=== PATIENT | male | born 1970 | race Two or more races ===

== ENCOUNTER 2016-08-21 08:16 | Emergency (ER) | payer OTHER ==
--- NOTE | ~2016-08-21 | CT4 ---
[facility] A Service of [facility] RADIOLOGY TEXT RESULTS PATIENT: DASH COWAN LOCATION: [facility] : 74 UNIT #: [id number] AGE: [address]: Dakota Khanna DO SEX: M ORDER DR: [id number] [facility] [place], [place] [address] [id number] E MR#: [id number] Acc #: [id number] NAME: DASH COWAN : 1970 SEX: M STUDY DATE/TIME: 08/21/2016 11:18 UNIT: [facility] ROOM: STUDY DESCRIPTION: CT Abd and Pelv Wo Cont Attending Physician: Dakota Khanna D.O. Ordering Physician: Dakota Khanna D.O. Primary Care Physician: No Primary Care Physician MEDICAL IMAGING REPORT This report is preliminary unless electronic signature is present EXAM Abdomen and pelvis CT without contrast. HISTORY Right-sided scrotal pain for the past 5 days. TECHNIQUE Axial images were obtained without contrast. This CT exam was performed with one or more of the following radiation dose reduction techniques: automatic exposure control, adjustment of mA and/or kV according to patient size, and iterative reconstruction. FINDINGS The liver, spleen and pancreas are normal in size. The kidneys show no evidence of stone disease or hydronephrosis. The ureters are nondilated. The appendix is normal. There is no evidence of retroperitoneal adenopathy or ascites and no distended bowel loops are seen. In the pelvis, there is no evidence of adenopathy, mass, or fluid collection. No evidence of an inguinal hernia on either side. IMPRESSION Negative abdomen and pelvis CT. Dictated by... Jaime Cooper M.D. THIS IS AN ELECTRONICALLY VERIFIED REPORT Jaime Cooper M.D. at 08/25/2016 6:27 PM RLF/tmw [facility] A Service of [facility] RADIOLOGY TEXT RESULTS PATIENT: DASH COWAN LOCATION: [facility] : 74 UNIT #: [id number] AGE: [address]: Dakota Khanna DO SEX: M ORDER DR: TD: 08/21/2016 12:13 JOB #: [id number] MEDICAL IMAGING REPORT Page 1 of 1 COPY
--- NOTE | ~2016-08-21 | US115 ---
[facility] A Service of [facility] RADIOLOGY TEXT RESULTS PATIENT: DASH COWAN LOCATION: [facility] : 74 UNIT #: [id number] AGE: [address]: Dakota Khanna DO SEX: M ORDER DR: [id number] [facility] [address] [place], [place] [address] [id number] E MR#: [id number] Acc #: [id number] NAME: DASH COWAN : 1970 SEX: M STUDY DATE/TIME: 08/21/2016 9:55 UNIT: [facility] ROOM: STUDY DESCRIPTION: US Scrotum and Contents Attending Physician: Dakota Khanna D.O. Ordering Physician: Dakota Khanna D.O. Primary Care Physician: No Primary Care Physician MEDICAL IMAGING REPORT This report is preliminary unless electronic signature is present EXAM Testicular ultrasound, 08/21/2016. HISTORY 46-year-old male with right-sided testicular pain for 5 days. COMPARISON None FINDINGS Real time lara-scale and color Doppler imaging of the scrotum was performed. Both testicles are normal in size and echogenicity. Normal vascular flow in both testicles. No evidence of torsion. No intratesticular or extratesticular masses. Bilateral epididymides within normal limits. Bilateral hydroceles are noted, slightly greater on the right than left. IMPRESSION Bilateral hydroceles, slightly greater on the right than left. Remainder of the examination is unremarkable. Dictated by... Conrad Key M.D. THIS IS AN ELECTRONICALLY VERIFIED REPORT Conrad Key M.D. at 08/22/2016 8:54 AM NEO/ankit TD: 08/21/2016 10:26 JOB #: [id number] [facility] A Service of [facility] & [facility] RADIOLOGY TEXT RESULTS PATIENT: DASH COWAN LOCATION: [facility] : 74 UNIT #: [id number] AGE: [address]: Dakota Khanna DO SEX: M ORDER DR: MEDICAL IMAGING REPORT Page 1 of 1 COPY
[2016-08-21 09:30] LABS: URINE SOURCE CLEAN CATCH
[2016-08-21 09:46] LABS: URINE APPEARANCE CLEAR; URINE BILIRUBIN NEG (NEG); URINE BLOOD NEG (NEG); URINE COLOR YELLOW; URINE GLUCOSE NEG (NEG); URINE KETONE NEG (NEG); URINE LEUKOCYTE ESTERASE 2+ (NEG); URINE NITRATE NEG (NEG); URINE PROTEIN NEG (NEG); URINE SPECIFIC GRAVITY 1.011 (1.003-1.035); URINE UROBILINOGEN 0.2 MG/DL (NEG)
[2016-08-21 09:48] LABS: BASOPHIL# 0.1 X10e3 (0-0.3); BASOPHIL% 0.6 % (0-2.5); CULTURE INDICATED? YES; EOSINOPHIL# 0.1 X10e3 (0-0.7); EOSINOPHIL% 1.5 % (0.0-7.0); HEMATOCRIT 47.8 % (38.0-50.0); HEMOGLOBIN 15.5 gm/dL (13.0-16.0); LYMPHOCYTE# 1.5 X10e3 (1.0-3.5); LYMPHOCYTE% 18.9 % (17.0-45.0); MEAN CELL VOLUME 91.6 FL (83-96); MEAN CORPUSCULAR HEMOGLOBIN 29.8 PG (28-34); MEAN CORPUSCULAR HGB CONC 32.5 g/dL (30-36); MEAN PLATELET VOLUME 12.2 FL (6.5-11.5); MONOCYTE# 0.6 X10e3 (0-1.0); MONOCYTE% 7.9 % (3.0-12.0); NEUTROPHIL# 5.7 X10e3 (1.5-7.1); NEUTROPHIL% 71.1 % (40-75); RED BLOOD COUNT 5.22 X10e (3.90-5.60); RED CELL DISTRIBUTION WIDTH 13.9 % (11.0-15.5); URBCS1 AUWI 0-2 /[HPF] (0-2); URINE BACTERIA AUWI NEG (NEGATIVE); URINE SQUAMOUS EPITHELIAL CELL NONE SEEN /[HPF]; UWBCS1 AUWI 25-50 (0-5)
[2016-08-21 09:57] LABS: ALBUMIN SERUM 4.2 g/dL (3.5-5.0); BILIRUBIN, DIRECT 0.1 mg/dL (0.0-0.2); BILIRUBIN,INDIRECT 0.6 mg/dL (0.0-0.9); BILIRUBIN,TOTAL 0.7 mg/dL (0.2-2.0); BUN/CREATININE RATIO 10.9; CALCIUM SERUM 9.1 mg/dL (8.4-10.2); CREATININE SERUM 1.1 mg/dL (0.6-1.4); GLOM FILT RATE Estimated 81.2 mL/min (>60); POTASSIUM 4.5 mmol/L (3.5-5.1); PROTEIN TOTAL SERUM 7.6 g/dL (6.0-8.3)
[2016-08-21 10:10] LABS: DIFF IND NO; PLATELET COUNT 103 X10e3 (140-420)
[2016-08-23 23:42] LABS: CHLAMYDIA TRACH Not Detected (Not Detected); N GONOR Not Detected (Not Detected)
== END 2016-08-21 15:11 | disposition home or self-care (01) ==
LOC: CED 08:16
PROVIDERS: Emergency Medicine
DX: N41.9 Inflammatory disease of prostate, unspecified (principal)
CPT/HCPCS: 36415; 74176; 76870; 80048; 80076; 81003; 83690; 85025; 87086; 87491; 87591; 96365; 99284; J0696